=== PATIENT | female | born 1990 | race Caucasian/White ===

== ENCOUNTER 2019-12-28 05:57 | Outpatient (CLI) | payer BC ==
[~2019-12-28] VITALS: Ht 175.3 cm; Wt 85.5 kg
--- NOTE | 2019-12-28 06:05 | NUR ---
G1 at 40 weeks and 2 days arrives to unit with complaint of contractions every 7 minutes since 0145. Pt reports feeling good movement, denies LOF or vaginal bleeding. Pt denies headaches, blurry vision, or RUQ pain. Pt oriented to room, call light within reach, bed in low and locked position. US and toco explained and applied. Plan of care reviewed with patient and spouse. Vital signs obtained. Admission assessment started. SVE /-3, membranes intact.
--- NOTE | 2019-12-28 06:20 | NUR ---
06-Recieved report from NATIVIDAD Acuña Patient being repositioned to . Reports contractions feel about the same as when she arrived, assessment complete. Updated on plan of care. 07- MD reviews strip on unit. Insturcted to PO hydrate. Large mug of water and cup of apple juice provided. 07-SVE 2, Updated MD on unit. reivews strip. VO to allow patient choice to either discharge home and return when contractions become more strong and regular or monitor x 1 hour and recheck cervix. Patient desires to discharge and return when contractions become strong and regular. Updated MD on unit. 07-Patient off EFM, reviewed discharge instructions with patient. Patient verbalized understanding. 741-Ambulatory off unit with spouse.
[2019-12-28 06:27] VITALS: BP 125/76; PULSE 104; TEMP 97.8
[2019-12-28 06:30] VITALS: BP 125/76; PULSE 104; TEMP 97.8
[2019-12-28] MEDS ORDERED: WELLBUTRIN XL300 M1 PO (06:36)
[2019-12-28 07:00] VITALS: BP 109/75; PULSE 103
[2019-12-28 07:25] VITALS: BP 120/70; PULSE 88
[2019-12-29] MEDS ORDERED: IBU600 MG PO (10:37)
== END 2019-12-28 07:42 | disposition home or self-care (01) ==
LOC: LDRO 05:57
DX: O62.9 Abnormality of forces of labor, unspecified (principal); Z3A.40 40 weeks gestation of pregnancy

== ENCOUNTER 2019-12-28 12:04 | Inpatient (IN) | payer BC ==
[~2019-12-28] VITALS: Ht 175.3 cm; Wt 85.5 kg
[2019-12-28] VITALS (38 sets, daily range): BP systolic 74–132; BP diastolic 37–85; PULSE 92–122; TEMP 97.2–98.1
[~2019-12-28 12:04] MED LIST: WELLBUTRIN XL300 M1 PO
--- NOTE | 2019-12-28 12:10 | NUR ---
Pt arrives on unit ambulatory with spouse. States contractions that have increased to every 3 minutes. Denies vaginal bleeding, LOF and reports GFM. Changed into clean gown. EFM and toco applied. VSS. Admission assessment completed. BATSHEVA Adamson, RN / with BOWI in vertex position. Dr. Holloway notified. Bed locked in low position. Call light within reach. Pt updated on POC. No questions or concerns at this time.
--- NOTE | 2019-12-28 13:10 | NUR ---
Late deceleration noted at 60 bpm at lowest point. Lasting approximately five mintues with return to 100 bmp baseline with 10L O2 applied via simple mask, and repositioned LL. SVE per this RN /-2. Dr. Holloway notified and requested to unit. IV started in LH. LR infusing. 1320-Dr. Holloway on unit. Bedside ultrasound performed confirming vertex position. Updated on POC. Safety reviewed. Consents signed. Pt up to birthing ball. Per Dr. Holloway, ok for intermittent monitoring as long as FHR strip reactive.
[2019-12-28 14:05] LABS: BASO % 0.2 % (0.0-2.0); EOS % 0.3 % (0-4.0); GRAN # 8.3 (1.4-6.5); GRAN % 74.3 % (42.2-75.2); HEMOGLOBIN 10.8 g/dl (12.5-16.0); LYMPH # 1.8 (1.2-3.4); MEAN CELL VOLUME 89 fl (80.0-100.0); MEAN CORPUSCULAR HEMOGLOBIN 29 pg (27.0-31.0); MEAN CORPUSCULAR HGB CONC 32 g/dl (33.0-37.0); MEAN PLATELET VOLUME 10.6 fl (7.4-10.4); MONO % 8.8 % (1.7-9.3); PLATELET COUNT 208 K/mm3 (130-400); RED BLOOD COUNT 3.79 M/mm3 (4.10-5.30); REDCELL DISTRIBUTION WIDTH-CV 13.7 % (11.5-14.5)
[2019-12-28 14:06] LABS: HEMATOCRIT 33.7 % (37.0-47.0)
--- NOTE | 2019-12-28 15:20 | NUR ---
Reactive FHR strip obtained. Pt requesting shower. INT performed and taken off monitors.
--- NOTE | 2019-12-28 16:03 | NUR ---
Pt back to monitors after shower. Difficulty tracing FHR. Pt on birthing ball. This RN at bedside adjusting monitors. FHR audible.
--- NOTE | 2019-12-28 16:22 | NUR ---
1622, 1625, 1626, 1633: This RN at bedside pt continues to sit on birthing ball. Intermittent maternal HR tracing. FHR audible.
--- NOTE | 2019-12-28 16:58 | NUR ---
Pt requesting epidural. Columba Perkins CRNA notifed. Pt taken to bathroom. Returns to EOB. Sitting upright.
--- NOTE | 2019-12-28 17:13 | NUR ---
Difficulty tracing FHR due to maternal position during epidural placement. RN at bedside adjusting monitors. FHR audible.
--- NOTE | 2019-12-28 17:41 | NUR ---
Veliz catheter placed with return of clear fluid. SVE per this RN 4/80/-2 BOWI. Pt repositioned LL with side stirrups. 1750-Late deceleration noted at the lowest point at 60 bmp lasting approximately 4 minutes. Pt repositioned RL. O2 applied via simple mask at 10L. SVE per this RN 5/90/-1 with SROM of clear fluid. FHR returns spontaneously to 135 baseline with accelerations. Repositioned sitting upright. Pericare performed.
--- NOTE | 2019-12-28 22:00 | NUR ---
1814- Bedside report from NATIVIDAD Henderson. on L&D unit. 1949- SVE /-1. Patient repositioned. 1999- See Physician Notification. 2004- Pitocin infusing at 2mU per protocol. 2129- SVE 5-/0. Patient repositioned. 2134- See Physician Notification. 2149- on unit. 2204- at bedside. SVE . Bedside US to confirm OP position. Plan of care discussed with patient. Patient chooses to move forward to minimal interventions and chooses repositioning at this time. Patient repositioned. Pitocin infusing at 10mU. Contractions noted every 2-4 minutes.
[2019-12-29] VITALS (18 sets, daily range): BP systolic 93–126; BP diastolic 54–71; PULSE 88–146; TEMP 98.1–98.8
--- NOTE | 2019-12-29 02:00 | NUR ---
2320- RN at bedside. EFM tracing maternal HR. FHR audible 140's. 0000- SVE 9-10/100/+1. Subtle recurrent late decelerations into the 130's noted. FHR returned to baseline within 30 seconds. 0030- SVE Complete/+1. Patient repositioned to sitting upright. 0115- SVE Complete/+2. Plan of care discussed. 0133- Practice Push x3. 0145- Veliz catheter removed. 0149- See Physician Notification. 0200- Practice Push x2. 0201- at bedside. Labor room prepared for delivery. 0204- Patient begins pushing with contractions with MD. 0210- of viable baby girl. NB care assumed by Chan,Nursery RN. Cord clamped and cut by FOB. Cord blood obtained. Pitocin off. 0214- Spontaneous delivery of placenta. Pitocin infusing at 333 ml/hr per protocol. Fundus massaged to firm by MD. 2nd degree perineal laceration repaired by . Pericare provided. Ice pack applied. 0215- PP Recovery started.
--- NOTE | 2019-12-29 05:00 | NUR ---
RN attempted to help patient ambulate to restroom. Patient up to side of bed without difficulty. Patient stands at side of bed independently. Patient reports feeling dizzy and having ringing in her ears. Patient was helped back to bed and HOB lowered. Patient encouraged to rest. Will attempt ambulation at later time. Fundus firm. Bleeding WNL.
--- NOTE | 2019-12-29 06:30 | NUR ---
Rests in bed, alert. To bathroom via wheel chair because of feeling a little dizzy. Tolerates with out difficulty. Renee-care explained and done. To room 215 via wheel chair, assisted to bed, tolerated well. Oriented to room. Spouse at bedside.
--- NOTE | 2019-12-29 09:50 | NUR ---
Request pain medication. Ibuprofen 600 mg given as ordered and per request.
--- NOTE | 2019-12-29 10:06 | NUR ---
Initial visit; Parents thanked Sleep Technician for offering congratulations and God's blessings for the of their daughter. Sleep Technician thanked family for choosing our hospital.
[2019-12-29] MEDS ORDERED: IBU600 MG PO (10:37)
--- NOTE | 2019-12-29 15:00 | NUR ---
Rests in bed, alert, request pain medication. 1510 Tylenol 650 mg given per request and as ordered.
--- NOTE | 2019-12-29 16:27 | NUR ---
Request pain medication. Ibuprofen 600 mg given per request and as ordered.
[2019-12-30 09:24] VITALS: BP 99/54; PULSE 99; TEMP 98
[2019-12-30] MEDS ORDERED: PERCOCET 325 MG1 TA2 PO (09:39)
[2019-12-30 16:37] VITALS: BP 100/57; PULSE 105; TEMP 98
[2019-12-30 20:00] VITALS: BP 125/67; PULSE 111; TEMP 98
[2019-12-31 08:00] VITALS: BP 110/55; PULSE 100; TEMP 98
--- NOTE | 2019-12-31 08:00 | NUR ---
This pt sitting up in bed holding and crying. Pt verbalizes to this nurse that "I am just scared she is going to or that I may drop her." Pt expresses she can't sleep well unless someone else is watching her. Pt states she has help at home from her and mom. This nurse to notify Dr Michael of concerns for depression. Pt already on welbutrin XL 300mg QD. 0900:Dr Su here and notified of concerns of depression. 1000:Dr Michael here and notified. see physician notes.
[2019-12-31] MEDS ORDERED: WELLBUTRIN XL300 M1 PO (11:11)
[2019-12-31] MEDS ORDERED: BUSPAR10 MG PO (11:11)
--- NOTE | 2019-12-31 11:31 | NUR ---
STEVE consult. STEVE called to patient's room for support. Patient's has a siezure. Patient and baby scheduled to [place] today. Baby will be transferred to [facility] for care. SW obtained information on behalf of parents and reported to them. [facility] is apart of the hospital building one, floor five. Educated patients on going to nursing station for a referral and they couple must pass a background check in order to be accepted. Patient's verbalized understanding. Patient maybe able to ride with baby must wait for transport to arrive. They will make the determination at that time. Educated family 4 to a room and they are not guarenteed a spot. Offered resources and educated on services. Nothing follows.
== END 2019-12-31 13:45 | disposition home or self-care (01) | DRG 807 ==
LOC: LDRO 12:04 → LDR 13:26 → OB 12-29 04:00
PROVIDERS: Obstetrics & Gynecology; ADMIT Obstetrics & Gynecology
PROC: 10E0XZZ Delivery of Products of Conception, External Approach (ICD-10-PCS; principal; 2019-12-28)
PROC: 0KQM0ZZ Repair Perineum Muscle, Open Approach (ICD-10-PCS; 2019-12-28)
DX: O48.0 Post-term pregnancy (principal); Z37.0 Single live birth; O99.344 Other mental disorders complicating childbirth; F41.9 Anxiety disorder, unspecified; O70.1 Second degree perineal laceration during delivery; Z3A.40 40 weeks gestation of pregnancy; F32.9 Major depressive disorder, single episode, unspecified
CPT/HCPCS: J2405; J2590; J2791; J2795; J7120